=== PATIENT | female | born 1975 | race African-American/Black ===

== ENCOUNTER 2020-05-13 08:50 | Outpatient (CLI) | payer BC, SELFPAY ==
--- NOTE | ~2020-05-13 | CT_ITS ---
EXAMINATION: CT abdomen wo con DATE: 05/13/2020 09:16 INDICATION: Incisional hernia without obstruction or gangrene. TECHNIQUE: Computed tomography (CT) of the abdomen was performed without intravenous contrast. Automa juan daniel exposure control and iterative reconstruction technique were employed. The dose-length product wa s 400.52 mGy-cm. COMPARISON: None FINDINGS: Mild subpleural fibrosis or atelectasis at the periphery of the right lower lobe. Heart size is tuan l. No pericardial or pleural effusion. Liver, gallbladder, spleen, pancreas, bilateral adrenal glands and kidneys are normal. Postoperative change of prior umbilical hernia repair with no residual or re current hernia. Visualized portion of the bowels appear normal with no wall thickening or obstruction . No pathologically enlarged abdomen lymphadenopathy. Minimal degenerative changes in the visualized thoracolumbar spine. IMPRESSION: 1. Change of prior right umbilical hernia repair with no residual or recurrent hernia. Reviewed, dictated and finalized at location B. MANAGER
== END 2020-05-13 08:51 | disposition home or self-care (01) ==
LOC: ANHIMG 08:56
PROVIDERS: PCP Internal Medicine; Visit Provider Surgery
DX: K43.2 Incisional hernia without obstruction or gangrene (principal)
CPT/HCPCS: 74150

== ENCOUNTER → 2020-05-16 01:48 | Outpatient (CLI) | payer BC, SELFPAY ==
[2020-05-17 08:28] LABS: SARS-CoV-2 RNA PCR Negative
== END ==
PROVIDERS: PCP Internal Medicine; Visit Provider Surgery
DX: Z01.812 Encounter for preprocedural laboratory examination (principal); Z20.822 Contact with and (suspected) exposure to COVID-19
CPT/HCPCS: 36415; 85014; 85018; 93005; C9803; U0003; U0005

== ENCOUNTER 2020-05-16 08:52 | Outpatient (CLI) | payer BC, SELFPAY ==
[2020-05-16 09:25] LABS: Hematocrit 40.7 % (37.0-47.0); Hemoglobin 13.1 g/dL (12.0-15.0)
--- NOTE | 2020-05-16 11:30 | ECG_ITS ---
Measurements Intervals [place] Rate: 67 P: 51 PA: 175 QRS: 26 QRSD: 86 T: 16 QT: 376 QTc: 398 Interpretive Statements SINUS RHYTHM DELAYED PRECORDIAL R/S TRANSITION BORDERLINE ST-T WAVE ABNORMALITY- ANT/INF LEADS BASELINE ARTIFACT- I, III, AVL BORDERLINE ECG Electronically Signed On 05-16-2020 9:16:36 [employer]OR [employer]AC[employer] by Niels Arthur D.O.
== END 2020-05-16 08:53 | disposition home or self-care (01) ==
LOC: ANHSURGERY 08:54
PROVIDERS: Anesthesiology; PCP Internal Medicine; Visit Provider Surgery
DX: Z01.812 Encounter for preprocedural laboratory examination (principal); I10 Essential (primary) hypertension; D64.9 Anemia, unspecified; R94.31 Abnormal electrocardiogram [ECG] [EKG]
CPT/HCPCS: 36415; 85014; 85018; 93005

== ENCOUNTER 2020-05-20 12:31 | Observation (INO) | payer BC, SELFPAY ==
[2020-05-15 11:25] VITALS: BMI 31.1
[2020-05-19] VITALS (13 sets, daily range): BP systolic 102–128; BP diastolic 61–76; PULSE 71–103; RESP 14–26; TEMP 36–36.8; O2SAT 90–100
--- NOTE | 2020-05-19 08:27 | WPDANESEPPF ---
Anes - Initial Pre Proc Eval Procedure: Operation Date: 05/19/20 10:30 Proposed Procedures p Incisional Hernia Repair with Component Separation - Keke Vicente MD Date/Time: 05/19/20 08:27 Surgeon: Keke Vicente MD Pre Op Diagnosis: incisional hernia, without obstruction or gangrene Patient Data Age: 45 Gender: F Height: 1.57 m Weight: 77.15 kg Allergies Allergy/AdvReac Type Severity Reaction Status Date / Time No Known Allergies Allergy Verified 05/15/20 09:42 Home Medications Medication Instructions Recorded Confirmed Type amlodipine 10 mg tablet 10 mg PO DAILY 05/07/20 05/15/20 History atenolol 100 mg tablet 100 mg PO QAM 05/07/20 05/15/20 History cholecalciferol (vitamin D3) 25 25 mcg PO DAILY 05/07/20 05/15/20 History mcg (1,000 unit) capsule dicyclomine 10 mg capsule 10 mg PO TID 05/07/20 05/15/20 History ferrous sulfate 325 mg (65 mg 325 mg PO DAILY 05/07/20 05/15/20 History iron) tablet medroxyprogesterone 104 mg/0.65 mL 104 mg SUBCUT [id number] 05/07/20 05/15/20 History subcutaneous syringe potassium chloride 10 mEq 10 meq PO DAILY 05/07/20 05/15/20 History tablet,extended release tizanidine 4 mg capsule 4 mg PO TID PRN 05/07/20 05/15/20 History ondansetron HCl 4 mg tablet 4 mg PO Q8H #10 tablet 05/14/20 05/15/20 Rx Patient hx anesthesia problems: none Family hx anesthesia problems: none PMFSH Past Medical History Medical History (Updated 05/19/20 @ 08:28 by Joseph Stewart MD) Hypertension Obesity Surgical History Surgical History H/O umbilical hernia repair History of D&C [place] teeth extracted Social History Social History Smoking packs per day: 1 Smoking cigarettes per day: 20.0 Years smoked: 20 Smoking pack-years: 20.00 Smoking status: Former smoker Tobacco type: cigarettes Smoking end date: 03/14/15 Alcohol intake: never Living arrangements: alone 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 Questions were solicited and answers provided to the satisfaction of the patient/family/POA.
[2020-05-19] MEDS: ACETAMINOPHEN 500 MG TABLET 1000 MG PO (10:38)
[2020-05-19] MEDS: LACTATED RINGERS 1,000 ML 30 ML IV CONT ×2 (10:45→15:53)
[2020-05-19] MEDS: KETOROLAC 15 MG/ML VIAL (*BKC) IV PUSH (10:52)
--- NOTE | 2020-05-19 12:33 | WPDANESPNB ---
Anes - Peripheral Nerve Block Date/Time: 05/19/20 12:33 I have discussed with the patient/family/POA the placement of a peripheral nerve block for post-operative pain management, including associated risks, benefits, complications, and side effects. Alternative methods of post-operative analgesia were detailed. Questions were solicited and answers provided to the satisfaction of the patient/family/POA. Time-Out: A pre-procedural Time-Out was completed immediately before starting the procedure and confirmed: Patient Identification, Site, Procedure, Patient Position and the Availability of Requisite Equipment. Clinical Indications: Acute post-operative pain management requested by the operative surgeon. Nerve Block Insertion Note Anes-nerve block: other (b/l T7 mohinder block) Patient position: other (sitting) Skin prep: chlorhexidine Needle: 22 gauge, stimulating, insulated echogenic needle. Needle length: 80 mm Technique: ultrasound Technique comment: in plane Injectate: bupivacaine 0.25% with epi 5 mcg/ml (20cc/side) Observations: tolerated well Complications: none Procedure start time:: 1220 Procedure end time:: 1230
--- NOTE | 2020-05-19 12:34 | WPDHPUPDATE1 ---
History and Physical Update Update Date/Time: 05/19/20 12:34 History and Physical has been reviewed, including an updated exam of the patient. There are NO changes in the patient's condition. Risks, benefits, and alternatives have been discussed and questions answered. Patient agrees to proceed with procedure.
[2020-05-19] MEDS: ceFAZolin 2 GM/D5W 50 ML 2 GM/50 ML BAG IVPB (12:41)
--- NOTE | 2020-05-19 15:36 | PM.PROC ---
Procedure Note - Detailed Date of procedure: 05/19/20 Pre-op diagnosis: incisional hernia, without obstruction or gangrene incisional hernia, loss of abdominal domain with lateralization of the rectus approximately 8-1/2 cm Post-op diagnosis: same Procedure performed: incisional hernia repair with mesh, bilateral transversus abdominis myofascial flap advancement (4 cm on right, 5 cm on left), removal of mesh/foreign body Description of procedure: The patient was brought to the operating room and placed in the supine position. After adequate induction of general anesthesia, the patient was prepped and draped in the normal sterile fashion. A time-out was then done to verify the patient's identity as well as the procedure being performed. Of note, Dr. Corbin was present for the entirety of the case and assisted with the procedure. The defect was noted at the umbilicus and just above. I made an incision just below the umbilicus and extended superiorly to above the area of the defect. I then gained access into the peritoneal cavity. There were some adhesions to the anterior abdominal wall and these were taken down with the Bovie cautery. Once the adhesions were completely freed to the anterior abdominal wall, I was able to note the defect just superior to the umbilicus. There was a previously placed piece of mesh that had been well incorporated around the area of the umbilicus. There is also noted to be loss of domain superior as the rectus muscle had lateralized. This left a defect of approximately 8-1/2 cm. I then went ahead and excised the previously placed mesh at the umbilicus. Once done, we made small flap just anterior to the anterior fascia to get a better view of her hernia. It was noted that the patient had very thin fascia. We then began dissection on the patient's right side. A retro rectus plane was developed and extended the length of the wound. Once the plane was well-developed we carried it down to the area of the suprapubis. Superior we carried this plane to the area of the xiphoid. The same dissection was then undertaken on the left as we developed a retro rectus plane extending from the xiphoid down to the suprapubic area. We then attempted to close the fascia both posteriorly and anteriorly. It was noted at this point there would be too much tension to close either layer and the fascia would not come together at the midline. The decision was then made to do a transversus abdominis release on the patient's right side. I started at the right costal margin and divided the transversus abdominus muscle over a clamp using the Bovie cautery. This was continued from the costal margin inferiorly to the semi luminaris. The muscle was divided medial to the neurovascular bundles innervating the overlying rectus. The patient was noted to have very thin fascia and I did have to repair a few holes in the peritoneum with 3 0 Vicryl suture. Once the dissection was completed, it was noted to be hemostatic and there was an extensive plane noted for mesh placement. We then again attempted to close the fascia. Again there was noted to be too much tension for closure. We did have approximately 4 cm release after separation. The decision was made to do a release on the left side. Again I started at the left costal margin and divided the transversus abdominus muscle over a clamp using the Bovie cautery. This dissection was carried down to the semi luminaris. Again the muscle was divided medial to the neurovascular bundles innervating the rectus. Once dissection was completed, hemostasis was noted and a good plane was noted for mesh placement. We are now able to easily close the posterior fascia at the midline. The noted release was approximately 5 cm on the left side. I then closed the posterior fascia using a 0 PDS suture. I then placed an extra large piece soft polypropylene mesh into the retro rectus space. This was placed in a rectangular fashion, cent
[2020-05-19] MEDS: fentaNYL CITRATE INJ (*CRX) 100 MCG/2 ML VIAL 25 MCG IV PUSH ×6 (16:17→17:08)
--- NOTE | 2020-05-19 16:23 | SUR.PHASEI ---
1610 portable chest xray ordered per dr carmichael
--- NOTE | 2020-05-19 16:46 | SUR.PHASEI ---
2535 bipap off pt placed on 3L nc
--- NOTE | 2020-05-19 17:45 | ADMGEN ---
This patient, Shyla Sanchez, was admitted to Medical Room 249-01. Patient/family oriented to hospital policies and general routines including ID bracelet, bed and alarms, visiting hours, pain management, procedures, bathroom and other care routines, personal items, smoking policy, room service/diet, and visiting hours. Information on how to activate the Rapid Response Team has been discussed. Patient/Family are encouraged to report perceived risks to care and to ask questions if they do not understand what they are told or what they should do.
[2020-05-19] MEDS: LACTATED RINGERS 1,000 ML 100 ML IV CONT (18:12)
[2020-05-19] MEDS: HYDROcodone/acetaminophen (*CRX) 5-325 MG TABLET 1 TAB PO (18:13)
[2020-05-19] MEDS: MORPHINE SULFATE (*CRX) 2 MG/ML INJ IV PUSH (19:05)
[2020-05-19] MEDS: ONDANSETRON INJ 4 MG/2 ML VIAL IV PUSH (19:46)
[2020-05-19] MEDS: MORPHINE SULFATE (*CRX) 4 MG/ML INJ IV PUSH (21:26)
[2020-05-19] MEDS: HYDROcodone/acetaminophen (*CRX) 5-325 MG TABLET 2 TAB PO (22:26)
[2020-05-20] VITALS (8 sets, daily range): BP systolic 102–118; BP diastolic 54–71; PULSE 93–111; RESP 18–21; TEMP 35.7–37.1; O2SAT 93–100
--- NOTE | ~2020-05-20 | XR_ITS ---
XR chest 1V portable 05/19/2020 16:16 Indication: Hypoxia. Procedure: AP portable chest Comparison: No prior studies for comparison. Findings: Heart size normal for technique. No focal air space disease, pulmonary edema, pleural effus ion or suspected pneumothorax. There is mild deviation of the trachea to the right, possibly position al. Consider lymphadenopathy. Impression: 1: No acute cardiopulmonary disease. 2: Mild deviation of the trachea to the right. Consider lymphadenopathy. Vascular etiologies less fa vored. If there is concern for vascular abnormality, correlation with CTA chest recommended. Reviewed, dictated and finalized at location A. OLL SECRETARY Impression: 1: No acute cardiopulmonary disease. 2: Mild deviation of the trachea to the right. Consider lymphadenopathy. Vascu lar etiologies less favored. If there is concern for vascular abnormality, crystal elation with CTA chest recommended.
[2020-05-20] MEDS: MORPHINE SULFATE (*CRX) 4 MG/ML INJ IV PUSH (01:43)
[2020-05-20] MEDS: LACTATED RINGERS 1,000 ML 100 ML IV CONT (04:23)
[2020-05-20] MEDS: HYDROcodone/acetaminophen (*CRX) 5-325 MG TABLET 2 TAB PO ×3 (04:28→19:56)
[2020-05-20 05:24] LABS: Basophils Percent Auto 0.1 % (0.2-1.2); Hemoglobin 11.3 g/dL (12.0-15.0); Immature Granulocyte Absolute 0.09 K/mm3 (0.00-0.031); Immature Granulocyte Percent A 0.5 % (0-0.5); Lymphocytes Percent Auto 7.5 % (18.3-44.2); Mean Corpuscular HGB Conc 32.3 g/dl (32-36); Mean Corpuscular Hemoglobin 26.1 pg (26-34); Mean Corpuscular Volume 80.8 fl (80-100); Mean Platelet Volume 9.8 fl (7.4-10.4); Monocytes Absolute Auto 1.3 K/mm3 (0.1-0.6); Neutrophils Absolute Auto 15.9 K/mm3 (1.3-6.7); Neutrophils Percent Auto 84.9 % (45.5-73.1); Platelet Count Result 373 k/mm3 (150-375); Red Blood Count 4.33 M/mm3 (4.2-5.4); Red Cell Distribution Width 13.9 % (11.5-14.5); White Blood Count 18.8 K/mm3 (4.5-10.0)
[2020-05-20 05:40] LABS: Anion Gap 8 mmol/L (8-16); Blood Urea Nitrogen 7 mg/dL (7-17); Calcium 9.3 mg/dL (8.4-10.2); Carbon Dioxide 25 mmol/L (22-30); Chloride 106 mmol/L (98-107); Estimated CRCL calculation 85 ml/min; Estimated Glomerular Filt Rate > 60; Glucose 148 mg/dL (65-105); Potassium 3.4 mmol/L (3.4-5.0); Sodium 139 mmol/L (137-145)
[2020-05-20] MEDS: ENOXAPARIN 40 MG/0.4 ML SYRINGE SUB-Q (09:18)
[2020-05-20] MEDS: PANTOPRAZOLE 40 MG TABLET PO (09:19)
--- NOTE | 2020-05-20 10:36 | PM.PNGS ---
Progress Note: A&P Assessment and Plan (1) Incisional hernia: Code(s): K43.2 - Incisional hernia without obstruction or gangrene Status: Acute Assessment and Plan: POD#1 and doing fair. Will adjust analgesics to improve pain control. Advance diet as tolerated. Stop IVF. Encouraged increasing activity as tolerated and sitting in the chair with meals, ambulate in halls. Encouraged IS use. (2) Hypertension: Qualifiers: Hypertension type: essential hypertension Qualified Code(s): I10 - Essential (primary) hypertension Code(s): I10 - Essential (primary) hypertension Status: Acute Assessment and Plan: BP this morning 102/54 and 105/60. Will hold both amlodipine and atenolol this morning. HR 96 this morning. Could consider first restarting the atenolol if BP improves or if she becomes more tachycardic. Will continue to monitor closely. (3) Obesity: Code(s): E66.9 - Obesity, unspecified Status: Acute Additional Plan Discussed plan of care with Dr. Vicente at 10:42am today. Subjective Subjective Date/Time Seen: 05/20/20 09:36 Post Op day: 1 (incisional hernia repair with mesh, bilateral transversus abdominis myofascial flap advancement, removal of mesh) Patient reports: tolerating liquids well, voiding w/o difficulty, no flatus, no bowel movement and afebrile Interval history: Patient seen this morning. Abdominal pain is not being controlled well with current pain medications. Nausea last night after surgery, but no more nausea through the night or this morning. No vomiting. Tolerating liquids well and requesting regular food. Review of Systems Review of Systems: All systems reviewed & are unremarkable except as noted in HPI and below Cardiovascular: Cardiovascular: Reports no additional cardiovascular complaints, Denies chest pain, Denies pedal edema and Denies leg edema Respiratory: Respiratory: Reports no additional respiratory complaints, Denies cough, Denies dyspnea and Denies dyspnea on exertion Gastrointestinal: Gastrointestinal: Reports as per HPI and Reports no additional gastrointestinal complaints Genitourinary: Genitourinary: Reports no additional female genitourinary complaints and Reports as per HPI Exam Const: General: comfortable, no acute distress, alert and awake Orientation/consciousness: patient oriented x3 Resp: Effort & Inspection: normal respiratory effort Auscultation: clear to auscultation bilaterally Cardio: Rate: regular rate Rhythm: regular rhythm GI: Inspection: incision (Abdominal dressing clean and dry.) and other (slightly distended) GI Palp: Yes Soft to palpation and Yes Tenderness to palpation present (GI) (incisional) Auscultation: normal bowel sounds Rectal Exam: deferred Other: LLQ ERMA drain with minimal sanguineous drainage. Skin: General skin exam: normal color Rashes: no rashes Neuro: General: moves all extremities and no focal motor deficits Cranial nerves: Yes CN's II-XII intact bilaterally Speech: normal speech Extrem: General: normal to inspection, no clubbing, cyanosis or edema and no calf tenderness Psych: Mental Status: mental status grossly normal Attitude: cooperative Thought process: Normal thought process present Thought content: Yes Normal thought content present Insight: Good insight present (Psych) Judgement: Good judgement present (Psych) Objective Data Vital Signs Vital Signs: Vital Signs - 24 hr 05/19/20 15:45 05/19/20 16:10 05/19/20 16:25 Temperature 96.8 F L Pulse Rate 88 71 83 Respiratory Rate 26 H 23 H 20 Blood Pressure 111/72 107/65 Pulse Oximetry 90 99 100 05/19/20 16:40 05/19/20 16:55 05/19/20 17:10 Temperature Pulse Rate 75 91 97 Respiratory Rate 14 16 14 Blood Pressure 109/75 108/76 112/69 Pulse Oximetry 100 96 94 05/19/20 17:25 05/19/20 17:45 05/19/20 18:00 Temperature 97.2 F L 97.4 F L Pulse Rate 96 98 101 H Respiratory Rate 18 16 16 Blood Pressure 107
[2020-05-20] MEDS: HYDROmorphone HCL INJ (*CRX) 1 MG/ML SYR 0.5 MG IV PUSH ×4 (10:42→21:45)
[2020-05-20] MEDS: DICYCLOMINE HCL 10 MG CAPSULE PO ×2 (12:29→16:45)
[2020-05-20] MEDS: ONDANSETRON INJ 4 MG/2 ML VIAL IV PUSH ×2 (12:32→16:45)
--- NOTE | 2020-05-20 13:50 | WPDANESPN ---
Anes - Prog Note Post-Op Date/Time: 05/20/20 13:50 Cardiovascular status: normal Respiratory status: normal Airway patency: baseline Mental status: baseline Post-Op hydration status: normal Vital Signs: Last Vital Signs Temp 36.4 C 05/20/20 08:00 Pulse 96 05/20/20 08:00 Resp 18 05/20/20 08:00 BP 105/60 05/20/20 08:00 Pulse Ox 93 05/20/20 10:52 Pain Score (VAS): 03/23 I/O: Intake & Output 05/19/20 05/20/20 05/20/20 23:59 07:59 15:59 Intake Total 780 1950 720 Output Total 30 1800 410 Balance 750 150 310 Laboratory Tests 05/20/20 05:00 05/20/20 05:00 05/20/20 05/20/20 05:00 05:00 WBC 18.8 H RBC 4.33 Hgb 11.3 L Hct 35.0 L MCV 80.8 MCH 26.1 MCHC 32.3 RDW 13.9 Plt Count 373 MPV 9.8 Immature Gran % (Auto) 0.5 Neut % (Auto) 84.9 H Lymph % (Auto) 7.5 L [place] % (Auto) 7.0 Eos % (Auto) 0.0 Baso % (Auto) 0.1 L Lymph # (Auto) 1.40 [place] # (Auto) 1.3 H Eos # (Auto) 0.0 Baso # (Auto) 0.0 Abs Immat Gran (auto) 0.09 H Absolute Neuts (auto) 15.9 H Absolute Nucleated RBC 0.0 Nucleated RBC % 0.0 Sodium 139 Potassium 3.4 Chloride 106 Carbon Dioxide 25 Anion Gap 8 BUN 7 Creatinine 0.70 Estim Creat Clear Calc 85 Estimated GFR > 60 Glucose 148 H Calcium 9.3 Post-procedural complaints: none Patient Feedback: Patient satisfied with anesthetic care.
[2020-05-20] MEDS: HYDROcodone/acetaminophen (*CRX) 7.5-325 MG TABLET 1 TAB PO (13:56)
[2020-05-20] MEDS: BISACODYL 5 MG TABLET EC 10 MG PO (19:52)
[2020-05-21] VITALS (9 sets, daily range): BP systolic 101–133; BP diastolic 60–80; PULSE 85–107; RESP 16–20; TEMP 36.1–36.8; O2SAT 95–97
[2020-05-21] MEDS: HYDROcodone/acetaminophen (*CRX) 5-325 MG TABLET 2 TAB PO ×2 (04:33→09:29)
[2020-05-21] MEDS: HYDROmorphone HCL INJ (*CRX) 1 MG/ML SYR 0.5 MG IV PUSH (06:01)
[2020-05-21] MEDS: ENOXAPARIN 40 MG/0.4 ML SYRINGE SUB-Q (09:20)
[2020-05-21] MEDS: PANTOPRAZOLE 40 MG TABLET PO (09:20)
[2020-05-21] MEDS: BISACODYL 10 MG SUPPOSITORY RECTAL (09:20)
[2020-05-21] MEDS: DICYCLOMINE HCL 10 MG CAPSULE PO ×3 (09:21→17:38)
--- NOTE | 2020-05-21 12:52 | PM.PNGS ---
Progress Note: A&P Assessment and Plan (1) Incisional hernia: Code(s): K43.2 - Incisional hernia without obstruction or gangrene Status: Acute Assessment and Plan: POD#2 and continuing to improve. Incision looks good today. Will again adjust analgesics to improve pain control - add Ibuprofen to alternate with oral narcotics, encouraged patient and nurse to avoid Dilaudid and stick to oral pain medication. Continue to monitor ERMA drain Will order PT/OT, encourage increased activity and ambulating in the halls. Encouraged IS use. Add simethicone. Continue colace and dulcolax. Use abdominal binder. (2) Hypertension: Qualifiers: Hypertension type: essential hypertension Qualified Code(s): I10 - Essential (primary) hypertension Code(s): I10 - Essential (primary) hypertension Status: Acute Assessment and Plan: Most recent BP 133/80 and HR 107. Will restart atenolol today (give half dose today and restart regular dose tomorrow morning). Continue to hold amlodipine today. Additional Plan Discussed plan of care with Dr. Vicente today. Subjective Subjective Date/Time Seen: 05/21/20 12:52 Post Op day: 2 Patient reports: still having pain, tolerating a regular diet, voiding w/o difficulty, no flatus, no bowel movement and afebrile Interval history: Patient still having abdominal pain, primarily with movement. She has only walked to the bathroom but not up in the halls. Voiding well. Tolerating a diet without nausea or vomiting. Reports Dilaudid is helping her incisional pain but the [place] is not helping with her pain at all. No other complaints today. Review of Systems Review of Systems: All systems reviewed & are unremarkable except as noted in HPI and below Cardiovascular: Cardiovascular: Reports no additional cardiovascular complaints, Denies chest pain and Denies pedal edema Respiratory: Respiratory: Reports no additional respiratory complaints, Denies cough, Denies dyspnea and Denies dyspnea on exertion Gastrointestinal: Gastrointestinal: Reports as per HPI and Reports no additional gastrointestinal complaints Exam Const: General: no acute distress, alert and awake Orientation/consciousness: patient oriented x3 Cardio: Rate: regular rate Rhythm: regular rhythm GI: Inspection: incision (midline incision clean and dry, chris intact) and other (slightly distended) GI Palp: Yes Soft to palpation, Yes Tenderness to palpation present (GI) (diffusely tender, worse near incision) and No Hernia present Auscultation: normal bowel sounds Other: LLQ ERMA drain with minimal serosanguineous drainage. Skin: General skin exam: normal color Neuro: General: moves all extremities and no focal motor deficits Speech: normal speech Extrem: General: no clubbing, cyanosis or edema and no calf tenderness Psych: Mental Status: mental status grossly normal Attitude: cooperative Insight: Good insight present (Psych) Judgement: Good judgement present (Psych) Objective Data Vital Signs Vital Signs: Vital Signs - 24 hr 05/20/20 13:52 05/20/20 14:00 05/20/20 22:00 Temperature 96.3 F L 98.8 F 97.3 F L Pulse Rate 111 H 104 H 93 Respiratory Rate 20 18 20 Blood Pressure 113/60 118/68 107/71 Pulse Oximetry 96 97 98 05/21/20 02:00 05/21/20 06:00 05/21/20 09:36 Temperature 98.3 F 98.0 F Pulse Rate 88 104 H Respiratory Rate 18 20 20 Blood Pressure 101/62 106/60 Pulse Oximetry 96 97 96 05/21/20 09:38 05/21/20 10:00 Temperature 97.8 F Pulse Rate 107 H Respiratory Rate 18 Blood Pressure 133/80 Pulse Oximetry 97 95 Intake/Output Intake/Output: Intake & Output 05/18/20 05/19/20 05/20/20 05/21/20 23:59 23:59 23:59 23:59 Intake Total 830 3950 590 Output Total 30 4560 1130 Balance 532 -833 -518 Meds/Results Medications: Active Medications Generic Name Dose Route Start Last Admin Trade Name Robertq PRN Reason Stop Dose Admin Acetaminophen 500 mg 05/19/20 1
[2020-05-21] MEDS: IBUPROFEN 600 MG TABLET PO (13:04)
[2020-05-21] MEDS: SIMETHICONE 80 MG TAB.CHEW PO ×3 (13:06→20:15)
[2020-05-21] MEDS: oxyCODONE/ACETAMINOPHEN (*CRX) 5-325 MG TABLET 1 TABLET PO ×3 (14:15→22:24)
[2020-05-21] MEDS: atenoloL 50 MG TABLET PO (14:24)
[2020-05-21] MEDS: BISACODYL 5 MG TABLET EC 10 MG PO (17:43)
[2020-05-22] VITALS (8 sets, daily range): BP systolic 101–121; BP diastolic 65–87; PULSE 74–101; RESP 16–20; TEMP 35.9–36.7; O2SAT 95–100
[2020-05-22] MEDS: oxyCODONE/ACETAMINOPHEN (*CRX) 5-325 MG TABLET 1 TABLET PO ×4 (04:50→18:06)
[2020-05-22] MEDS: SIMETHICONE 80 MG TAB.CHEW PO ×4 (08:41→20:27)
[2020-05-22] MEDS: ENOXAPARIN 40 MG/0.4 ML SYRINGE SUB-Q (08:42)
[2020-05-22] MEDS: PANTOPRAZOLE 40 MG TABLET PO (08:42)
[2020-05-22] MEDS: DICYCLOMINE HCL 10 MG CAPSULE PO ×3 (08:42→18:05)
[2020-05-22] MEDS: atenoloL 50 MG TABLET 100 MG PO (08:42)
--- NOTE | 2020-05-22 10:15 | PM.PNGS ---
Progress Note: A&P Assessment and Plan (1) Incisional hernia: Code(s): K43.2 - Incisional hernia without obstruction or gangrene Status: Acute Assessment and Plan: better, encourage OOB/IS, control pain as much as possible c po analgesia, anticipate home soon (2) Hypertension: Qualifiers: Hypertension type: essential hypertension Qualified Code(s): I10 - Essential (primary) hypertension Code(s): I10 - Essential (primary) hypertension Status: Acute Assessment and Plan: stable, cont home meds Subjective Subjective Date/Time Seen: 05/22/20 feels better today, sitting up in chair this am, pain better controlled Review of Systems Review of Systems: All systems reviewed & are unremarkable except as noted in HPI and below Exam Const: General: cooperative, comfortable and no acute distress Orientation/consciousness: patient oriented x3 Resp: Auscultation: clear to auscultation bilaterally Cardio: Rate: tachycardic Rhythm: regular rhythm GI: Inspection: normal to inspection, distended and incision GI Palp: Yes Soft to palpation and Yes Tenderness to palpation present (GI) Other: soft, sl dist, katharina TTP, incision C/D/I, ERMA c s/s output Objective Data Vital Signs Vital Signs: Vital Signs - 24 hr 05/21/20 14:00 05/21/20 14:24 05/21/20 18:00 Temperature 36.3 C L 36.2 C L Pulse Rate 100 102 H 85 Respiratory Rate 16 16 Blood Pressure 129/75 106/68 Pulse Oximetry 96 97 05/21/20 21:43 05/22/20 02:00 05/22/20 05:31 Temperature 36.1 C L 36.1 C L 36.2 C L Pulse Rate 92 93 94 Respiratory Rate 18 18 18 Blood Pressure 113/72 121/83 111/87 Pulse Oximetry 95 95 99 05/22/20 08:42 05/22/20 10:00 Temperature 36.6 C Pulse Rate 86 101 H Respiratory Rate 16 Blood Pressure 102/68 Pulse Oximetry 97 Intake/Output Intake/Output: Intake & Output 05/19/20 05/20/20 05/21/20 05/22/20 23:59 23:59 23:59 23:59 Intake Total 830 3950 2020 480 Output Total 30 1540 3015 440 Balance 703 -986 -133 40 Meds/Results Medications: Active Medications Generic Name Dose Route Start Last Admin Trade Name Freq PRN Reason Stop Dose Admin Acetaminophen 500 mg 05/19/20 15:30 Acetaminophen 500 Mg Tablet PO Q6H PRN Mild Pain (1-3) or Fever Atenolol 100 mg 05/22/20 09:00 05/22/20 08:42 Atenolol 50 Mg Tablet PO 100 mg QAM AURE Administration Bisacodyl 10 mg 05/20/20 18:00 05/21/20 17:43 Bisacodyl 5 Mg Tablet Ec PO 10 mg QPM AURE Administration Dicyclomine HCl 10 mg 05/20/20 13:00 05/22/20 08:42 Dicyclomine Hcl 10 Mg Capsule PO 10 mg TID [facility] Administration Enoxaparin Sodium 40 mg 05/20/20 09:00 05/22/20 08:42 Enoxaparin 40 Mg/0.4 Ml Syringe SUB-Q 40 mg DAILY AURE Administration Hydromorphone HCl 0.5 mg 05/20/20 11:11 05/21/20 06:01 Hydromorphone Hcl Inj (*Crx) 1 Mg/Ml Syr IV PUSH 0.5 mg Q2H PRN Administration Pain Rated 7-10 Ibuprofen 600 mg 05/21/20 12:42 05/21/20 13:04 Ibuprofen 600 Mg Tablet PO 600 mg Q6H PRN Administration Cramping Ondansetron HCl 4 mg 05/19/20 15:30 05/20/20 16:45 Ondansetron Inj 4 Mg/2 Ml Vial IV PUSH 4 mg Q4H PRN Administration Nausea And Vomiting Oxycodone/Acetaminophen 1 tablet 05/21/20 13:04 05/22/20 08:41 Oxycodone/Acetaminophen (*Crx) 5-325 Mg Tablet PO 1 tablet Q4H PRN Administration Pain Rated 7-10 Pantoprazole Sodium 40 mg 05/20/20 09:00 05/22/20 08:42 Pantoprazole 40 Mg Tablet PO 40 mg QAM AURE Administration Simethicone 80 mg 05/21/20 13:00 05/22/20 08:41 Simethicone 80 Mg Tab.Chew PO 80 mg QID AURE Administration Radiology Results: ITS Impressions Chest X-Ray 05/19/20 16:26 Impression: 1: No acute cardiopulmonary disease. 2: Mild deviation of the trachea to the right. Consider lymphadenopathy. Vascular etiologies less favored. If there is concern for vascular abnormality, correlation
[2020-05-22 10:21] LABS: Hematocrit 36.1 % (37.0-47.0); Hemoglobin 11.6 g/dL (12.0-15.0); Mean Corpuscular HGB Conc 32.1 g/dl (32-36); Mean Corpuscular Hemoglobin 26.7 pg (26-34); Mean Platelet Volume 9.6 fl (7.4-10.4); Platelet Count Result 367 k/mm3 (150-375); Red Blood Count 4.35 M/mm3 (4.2-5.4); Red Cell Distribution Width 14.4 % (11.5-14.5); White Blood Count 9.5 K/mm3 (4.5-10.0)
[2020-05-22 10:35] LABS: Anion Gap 8 mmol/L (8-16); Blood Urea Nitrogen 7 mg/dL (7-17); Calcium 8.7 mg/dL (8.4-10.2); Carbon Dioxide 27 mmol/L (22-30); Chloride 104 mmol/L (98-107); Estimated CRCL calculation 84 ml/min; Estimated Glomerular Filt Rate > 60; Glucose 156 mg/dL (65-105); Potassium 3.2 mmol/L (3.4-5.0); Sodium 139 mmol/L (137-145)
[2020-05-22] MEDS: IBUPROFEN 600 MG TABLET PO ×2 (10:46→20:27)
[2020-05-22] MEDS: BISACODYL 5 MG TABLET EC 10 MG PO (18:06)
[2020-05-23] MEDS: oxyCODONE/ACETAMINOPHEN (*CRX) 5-325 MG TABLET 1 TABLET PO ×2 (00:54→08:02)
[2020-05-23 01:04] VITALS: BP 102/65; PULSE 84; RESP 20; TEMP 36.2; O2SAT 96
[2020-05-23 04:49] VITALS: BP 128/70; PULSE 83; RESP 20; TEMP 36.1; O2SAT 97
[2020-05-23 08:00] VITALS: PULSE 88; RESP 20; O2SAT 98
[2020-05-23 08:03] VITALS: PULSE 88
[2020-05-23] MEDS: PANTOPRAZOLE 40 MG TABLET PO (08:03)
[2020-05-23] MEDS: DICYCLOMINE HCL 10 MG CAPSULE PO (08:03)
[2020-05-23] MEDS: atenoloL 50 MG TABLET 100 MG PO (08:03)
[2020-05-23] MEDS: SIMETHICONE 80 MG TAB.CHEW PO (08:08)
--- NOTE | 2020-05-23 09:47 | PM.DS ---
DS: Admitting Diagnosis Admitting Diagnosis Admitting Diagnosis: incisional hernia, loss of abdominal domain DS: Discharge Diagnosis Discharge Diagnosis (1) Incisional hernia: Code(s): K43.2 - Incisional hernia without obstruction or gangrene Status: Acute Assessment and Plan: s/p repair c mesh, please see full operative report for details, routine postop care instructions given, cont light activity restriction, f/u 2 wks (2) Hypertension: Qualifiers: Hypertension type: essential hypertension Qualified Code(s): I10 - Essential (primary) hypertension Code(s): I10 - Essential (primary) hypertension Status: Acute Assessment and Plan: stable, resume home meds (3) Obesity: Code(s): E66.9 - Obesity, unspecified Status: Acute Assessment and Plan: dietary and lifestyle modifications DS: Summary Hospital Course Reason for hospitalization: incisional hernia Hospital Course: Pt is a 45 y/o F presenting to hospital c supraumbilical incisional hernia. Pt very symptomatic c/o severe pain and occasional sx of obstruction. Pt taken to OR and repair done on 05/19, please see full op report for details. Pt initially c/o significant soreness, pain postop and pain meds adjusted accordingly. Over next few days, pt pain became much improved. Pt able to ambulate s issue by time of dc. Pt osmar diet and having normal bowel fxn. Pt given instructions for routine postop care, including light activity restriction. ERMA out today before dc. Pt to f/u in 1 wk for staple removal. Status at Discharge Functional status at discharge: independent ambulation Overall status at discharge: patient is progressing back to baseline Time Spent with Patient Time attestation: Total time spent providing and/or coordinating discharge services: Time spent: Less than 30 minutes Exam Const: General: cooperative, comfortable and no acute distress Nutritional Appearance: obese Orientation/consciousness: patient oriented x3 Resp: Auscultation: clear to auscultation bilaterally Cardio: Rate: regular rate Rhythm: regular rhythm GI: Inspection: normal to inspection, Abdominal wall edema, distended and incision GI Palp: Yes Soft to palpation, Yes Tenderness to palpation present (GI) and No Guarding due to palpation present (GI) Other: soft, sl dist, katharina TTP, incision C/D/I, ERMA removed DS: Data Data Completed and Pending Labs on day of discharge: Labs from last 24 hours 03/11/21 03/11/21 10:07 10:07 WBC 9.5 RBC 4.35 Hgb 11.6 L Hct 36.1 L MCV 83.0 MCH 26.7 MCHC 32.1 RDW 14.4 Plt Count 367 MPV 9.6 Sodium 139 Potassium 3.2 L Chloride 104 Carbon Dioxide 27 Anion Gap 8 BUN 7 Creatinine 0.70 Estim Creat Clear Calc 84 Estimated GFR > 60 Glucose 156 H Calcium 8.7 Discharge Plan Discharge Attending physician on discharge: Keke Vicente Discharging Clinician: Keke Vicente Anticipated Discharge Date/Time: 05/23/20 09:41 Patient Disposition: Home, Self-Care Activity: may shower, no straining and other - see discharge instructions Diet: as tolerated and heart healthy Wound Care Instructions: incision open to air Discharge Instructions: DISCHARGE INSTRUCTION SHEET FOR HERNIA, GALLBLADDER AND APPENDIX SURGERIES DR. VICENTE PATIENT TO TAKE HOME 1. May shower in 24 hours, no soaking in bath x 2weeks. 2. Call office for: Wound increasingly painful or bleeding Vomiting Fever of greater than 101 degrees 3. If no bowel movement for three days, take 1 oz. (30 ml) Milk of Magnesia or MiraLax 17g 1 to 2 times daily. 4. No heavy lifting > 10-15 pounds x 6 weeks for hernia repairs and 2 weeks for laparoscopic cholecystectomy or appendectomy. 5. No driving for 3 days or while taking narcotic pain medications. 6. Ice to surgical site for 48 hours (30 min on, then 30 min off).
[2020-05-23 10:00] VITALS: BP 133/82; PULSE 93; RESP 14; TEMP 36.5; O2SAT 98
== END 2020-05-23 11:30 | disposition home or self-care (01) ==
LOC: ANHSURGERY 12:48 → ANH2MED 12:48
PROVIDERS: Nurse Practitioner Family; Admitting Provider Surgery; PCP Internal Medicine; Visit Provider Surgery
PROC: 0WQF0ZZ Repair Abdominal Wall, Open Approach (ICD-10-PCS; CPT 49560; principal; 2020-05-19 10:30)
DX: K43.2 Incisional hernia without obstruction or gangrene (principal); I10 Essential (primary) hypertension; G89.18 Other acute postprocedural pain
CPT/HCPCS: 64461; 49560; 49568; 15734; 36415; 71045; 80048; 85025; 85027; 94002; 97161; 97165; A9270; C1781; G0378; G0379; J0690; J1100; J1170; J1650; J1885; J2250; J2270; J2370; J2405; J2704; J3010; J7120

== ENCOUNTER 2020-05-25 12:54 | Emergency (ER) | payer BC, SELFPAY ==
--- NOTE | ~2020-05-25 | XR_ITS ---
EXAMINATION: XR abdomen obstructive series DATE: 05/25/2020 13:56 INDICATION: Abdominal pain. TECHNIQUE: Upright and supine views of the abdomen were obtained. COMPARISON: CT abdomen 05/13/2020 FINDINGS: There are no dilated loops of bowel. There is no free intraperitoneal gas. Skin chris ove rlie the abdomen. IMPRESSION: 1. Normal bowel gas pattern. Reviewed, dictated and finalized at location A.
[2020-05-25 13:03] VITALS: BP 147/93; PULSE 123; RESP 20; TEMP 36.8; O2SAT 100
--- NOTE | 2020-05-25 13:38 | ED.ABDPAIN ---
HPI - Abdominal Pain General Chief Complaint: Abdominal Pain Stated Complaint: s/p hernia surgery unable to urinate Time Seen by Provider: 05/25/20 12:58 Source: patient Mode of arrival: ambulatory Limitations: no limitations History of Present Illness HPI narrative: This is a 45 year old female that presents to the ER for difficulty urinating. Reports she had a hernia repair 6 days ago. Reports she has not had a BM since. Reports this morning she did urinate normally, but since has not been able to. Reports she feels the urge, but cannot. Also reports she feels like she needs to have a bowel movement. Denies fever, or vomiting. Related Data Home Medications Medication Instructions Recorded Confirmed amlodipine 10 mg tablet 10 mg PO DAILY 05/07/20 05/19/20 atenolol 100 mg tablet 100 mg PO QAM 05/07/20 05/19/20 cholecalciferol (vitamin D3) 25 25 mcg PO DAILY 05/07/20 05/19/20 mcg (1,000 unit) capsule dicyclomine 10 mg capsule 10 mg PO TID 05/07/20 05/19/20 ferrous sulfate 325 mg (65 mg 325 mg PO DAILY 05/07/20 05/19/20 iron) tablet medroxyprogesterone 104 mg/0.65 mL 104 mg SUBCUT [id number] 05/07/20 05/19/20 subcutaneous syringe tizanidine 4 mg capsule 4 mg PO TID PRN 05/07/20 05/19/20 Allergies Allergy/AdvReac Type Severity Reaction Status Date / Time No Known Allergies Allergy Verified 05/25/20 13:08 Review of Systems Review of Systems: Narrative: CONSTITUTIONAL: Denies fever GASTROINTESTINAL: Reports abdominal pain. Denies nausea or vomiting. GENITOURINARY: Denies dysuria All systems reviewed & are unremarkable except as noted in HPI and below PMFSH Past Medical History Medical History (Updated 05/25/20 @ 17:13 by Leslee Narvaez PA-C) Hypertension Obesity Surgical History Surgical History H/O umbilical hernia repair History of D&C Rotan teeth extracted Social History Social History Smoking packs per day: 1 Smoking cigarettes per day: 20.0 Years smoked: 20 Smoking pack-years: 20.00 Smoking status: Former smoker Tobacco type: cigarettes Smoking end date: 03/14/15 Alcohol intake: never Substance use: never Additional occupation/education comments: [employer] Gender identity (if verbalized by the patient): Female Spiritual care concerns: No Exam Narrative: Exam Narrative: GENERAL: Well-appearing, well-nourished, and in no acute distress. HEAD: Normocephalic, atraumatic. EYES: EOMI. CHEST: Clear to auscultation. No respiratory distress. No wheezes rales or rhonchi HEART: Regular rate and rhythm. No murmur heard. Normal peripheral pulses. ABDOMEN: Soft, nontender, nondistended, normal active bowel sounds. Incision to the left mid abdomen with chris in place. No surrounding erythema, warmth or edema. No abnormal drainage EXTREMITIES: Normal range of motion. No edema. SKIN: Warm, dry, no rash. NEURO: No focal deficits. Alert and oriented x3. PSYCH: Normal mood and affect Course Consultations Consultation #1: Spoke with Dr. Rodriguez about patient and work-up. Patient instructed to continue MiraLAX at home and follow-up at her scheduled appointment. Date: 05/25/20 Time: 17:15 Vital Signs Vital signs: Vital Signs Temperature 98.3 F 05/25/20 13:03 Pulse Rate 123 H 05/25/20 13:03 Respiratory Rate 20 05/25/20 13:03 Blood Pressure 147/93 H 05/25/20 13:03 Pulse Oximetry 100 05/25/20 13:03 Temperature 98.3 F 05/25/20 13:03 Pulse Rate 118 H 05/25/20 15:53 Respiratory Rate 20 05/25/20 15:53 Blood Pressure 142/87 H 05/25/20 15:53 Pulse Oximetry 96 05/25/20 15:53 MDM - Abdominal Pain MDM Narrative Medical decision making narrative: Patient presents to the emergency department for difficulty urinating. Also had been having difficulty having a bowel movement since her recent incisional hernia repair. She is afebrile and no
[2020-05-25 13:57] LABS: Basophils Percent Auto 0.1 % (0.2-1.2); Eosinophils Absolute Auto 0.2 K/mm3 (0-0.3); Hemoglobin 12.2 g/dL (12.0-15.0); Immature Granulocyte Absolute 0.07 K/mm3 (0.00-0.031); Immature Granulocyte Percent A 0.7 % (0-0.5); Lymphocytes Absolute Auto 1.94 K/mm3 (0.9-3.2); Lymphocytes Percent Auto 19.5 % (18.3-44.2); Mean Corpuscular HGB Conc 32.1 g/dl (32-36); Mean Corpuscular Hemoglobin 26.6 pg (26-34); Mean Corpuscular Volume 82.8 fl (80-100); Mean Platelet Volume 9.1 fl (7.4-10.4); Monocytes Absolute Auto 0.6 K/mm3 (0.1-0.6); Monocytes Percent Auto 6.4 % (2.6-8.5); Neutrophils Absolute Auto 7.1 K/mm3 (1.3-6.7); Neutrophils Percent Auto 71.3 % (45.5-73.1); Platelet Count Result 435 k/mm3 (150-375); Red Blood Count 4.59 M/mm3 (4.2-5.4); Red Cell Distribution Width 14.2 % (11.5-14.5); White Blood Count 9.9 K/mm3 (4.5-10.0)
[2020-05-25 14:09] LABS: Anion Gap 7 mmol/L (8-16); Blood Urea Nitrogen 7 mg/dL (7-17); Calcium 9.5 mg/dL (8.4-10.2); Carbon Dioxide 29 mmol/L (22-30); Chloride 105 mmol/L (98-107); Estimated CRCL calculation 82 ml/min; Estimated Glomerular Filt Rate > 60; Glucose 107 mg/dL (65-105); Potassium 3.6 mmol/L (3.4-5.0); Sodium 141 mmol/L (137-145)
[2020-05-25 14:41] LABS: Add Urine Microscopic? NO; Appearance Urine Clear (Clear); Bilirubin Urine Negative (Negative); Blood Urine Negative (Negative); Color Urine Yellow (Yellow); Glucose Urine UA Negative (Negative); Ketones Urine Negative (Negative); Leukocyte Esterase Ur Negative LEU/UL (Negative); Nitrate Urine Negative (Negative); Protein Urine Negative (Negative); Specific Grav Ur 1.012 (1.001-1.035); Urobilinogen Urine Negative mg/dL (<2.0)
[2020-05-25] MEDS: polyethylene glycoL 3350 17 GM POWD.PACK PO (15:00)
[2020-05-25 15:53] VITALS: BP 142/87; PULSE 118; RESP 20; O2SAT 96
[2020-05-25 17:24] VITALS: BP 152/98; PULSE 99; RESP 17; O2SAT 97
== END 2020-05-25 17:25 | disposition home or self-care (01) ==
PROVIDERS: Physician Assistant; Emergency Provider Family Medicine; PCP Internal Medicine
DX: K59.00 Constipation, unspecified (principal); I10 Essential (primary) hypertension; E66.9 Obesity, unspecified; Z68.29 Body mass index [BMI] 29.0-29.9, adult; Z87.891 Personal history of nicotine dependence; Z98.890 Other specified postprocedural states
CPT/HCPCS: 36415; 51701; 74019; 80048; 81003; 81025; 85025; 99283

== ENCOUNTER 2020-07-15 07:20 | Outpatient (CLI) | payer BC, SELFPAY ==
--- NOTE | ~2020-07-15 | CT_ITS ---
EXAMINATION: CT abdomen w con INDICATION: Incisional hernia without obstruction or gangrene TECHNIQUE: Computed tomographic images of the abdomen were obtained after the administration of 100 c c of Omnipaque 350 intravenous contrast. The dose-length product (DLP) was 600.43 mGy-cm. Automated e xposure control and iterative reconstruction technique were employed. COMPARISON: 05/13/2020 FINDINGS: Minimal dependent atelectasis is present in the lung bases. The heart size is normal. The l iver, spleen, pancreas, gallbladder, and adrenal glands are normal. The kidneys are unremarkable. The re are no pathologically enlarged lymph nodes. Changes of interval umbilical hernia repair revision a re noted. There is inflammation of the anterior subcutaneous tissues in the midline abdomen without e vidence of abscess. There is no free intraperitoneal gas or evidence of bowel obstruction. IMPRESSION: 1. Changes of interval umbilical hernia repair revision with inflammation but no evidence of abscess. Reviewed, dictated and finalized at location A. IMPRESSION: 1. Changes of interval umbilical hernia repair revision with inflammation but n o evidence of abscess.
[2020-07-15 16:28] LABS: Estimated Glomerular Filt Rate > 60
== END 2020-07-15 07:21 | disposition home or self-care (01) ==
LOC: ANHIMG 07:21
PROVIDERS: PCP Internal Medicine; Visit Provider Surgery
DX: K43.2 Incisional hernia without obstruction or gangrene (principal)
CPT/HCPCS: 74160; Q9967

== ENCOUNTER 2022-05-04 10:43 | Outpatient (CLI) | payer OTHER, SELFPAY ==
--- NOTE | ~2022-05-04 | XR_ITS ---
Right Knee Technique: AP, lateral, and sunrise views were obtained. Clinical History: Abnormal immunological findings Findings: No fracture or dislocation is seen. Osseous alignment is anatomic. Joint spaces are preserv ed without degenerative or erosive change. Small metallic foreign bodies noted in the anterior subcut aneous soft tissues at the distal thigh. No joint effusion is seen. Impression: No osseous or articular abnormality. Small metallic foreign bodies in the anterior subcutaneous soft tissues at the distal right thigh. Reviewed, dictated and finalized at location . ANALYST Impression: No osseous or articular abnormality. Small metallic foreign bodies in the anterior subcutaneous soft tissues at the distal right thigh.
--- NOTE | ~2022-05-04 | XR_ITS ---
Left foot Technique: AP and lateral standing views were obtained. Clinical History: Abnormal immunological finding Findings: No acute fracture or dislocation is seen. Osseous alignment is anatomic. Joint spaces are p reserved without erosive or degenerative change. Soft tissues are unremarkable. Impression: Unremarkable left foot radiographs. Reviewed, dictated and finalized at location . RESOURCE MANAGER Impression: Unremarkable left foot radiographs.
--- NOTE | ~2022-05-04 | XR_ITS ---
Left Knee Technique: AP, lateral, and sunrise views were obtained. Clinical History: Abnormal immunological findings Findings: No fracture or dislocation is seen. Osseous alignment is anatomic. Joint spaces are preserv ed without degenerative or erosive change. Soft tissues are unremarkable. No joint effusion is seen. Impression: Unremarkable left knee radiographs. Reviewed, dictated and finalized at location . AND LINK SHOP SUPERVISOR Impression: Unremarkable left knee radiographs.
--- NOTE | ~2022-05-04 | XR_ITS ---
Right foot Technique: AP and lateral standing views were obtained. Clinical History: Abnormal immunological finding Findings: No acute fracture or dislocation is seen. Osseous alignment is anatomic. Joint spaces are p reserved without erosive or degenerative change. Soft tissues are unremarkable. Impression: Unremarkable right foot radiographs. Reviewed, dictated and finalized at location . LE MAKER Impression: Unremarkable right foot radiographs.
--- NOTE | ~2022-05-04 | XR_ITS ---
Bilateral Hands Technique: PA, oblique, and lateral views, and ball-catcher's view were obtained. Clinical History: Abnormal immunological findings Findings: No acute fracture or dislocation is seen. Osseous alignment is anatomic. Joint spaces are p reserved. Soft tissues are unremarkable. Impression: Unremarkable bilateral hand radiographs. Reviewed, dictated and finalized at [facility]. ET CLOSER Impression: Unremarkable bilateral hand radiographs.
--- NOTE | ~2022-05-04 | XR_ITS ---
Clinical Indication: Abnormal immunological findings PA and lateral views of the chest: Comparison: 05/19/2020 Findings: The lungs are clear, without evidence of focal consolidation or pleural effusion. Cardiome diastinal silhouette is within normal limits. Bones and soft tissues are unremarkable. Impression: Normal chest. Reviewed, dictated and finalized at [facility]. UMER LENDING MANAGER Impression: Normal chest.
--- NOTE | ~2022-05-04 | XR_ITS ---
Lumbosacral Spine: AP, oblique, and lateral views Clinical History: Abnormal immunological findings Findings: The normal lordotic curve is maintained. The vertebral bodies and posterior elements are i ntact. The intervertebral disc spaces are preserved. The sacroiliac joints are normally outlined. Impression: No significant abnormality. Reviewed, dictated and finalized at [facility]. OMS OFFICER Impression: No significant abnormality.
[2022-05-04 12:26] LABS: Hematocrit 41.8 % (37.0-47.0); Hemoglobin 13.6 g/dL (12.0-15.0); Mean Corpuscular HGB Conc 32.5 g/dl (32-36); Mean Corpuscular Hemoglobin 27.3 pg (26-34); Mean Corpuscular Volume 83.8 fl (80-100); Mean Platelet Volume 9.6 fl (7.4-10.4); Platelet Count Result 398 k/mm3 (150-375); Red Blood Count 4.99 M/mm3 (4.2-5.4); Red Cell Distribution Width 14.5 % (11.5-14.5); White Blood Count 7.6 K/mm3 (4.5-10.0)
[2022-05-04 12:55] LABS: Complement C3 144 mg/dL (88-165)
[2022-05-04 13:06] LABS: Alanine Aminotransferase 29 U/L (6-35); Albumin Level 4.7 g/dL (3.5-5.1); Alkaline Phosphatase 133 U/L (38-126); Anion Gap 9 mmol/L (8-16); Aspartate Amino Transferase 41 U/L (14-36); Bilirubin,Total 0.5 mg/dL (0.2-1.3); Blood Urea Nitrogen 11 mg/dL (7-17); CRP 0.6 mg/dL (<1.0); Calcium 9.4 mg/dL (8.4-10.2); Carbon Dioxide 30 mmol/L (22-30); Chloride 96 mmol/L (98-107); Estimated Glomerular Filt Rate > 60; Glucose 101 mg/dL (65-110); Potassium 2.7 mmol/L (3.4-5.0); Sodium 135 mmol/L (137-145)
[2022-05-04 15:41] LABS: Erythrocyte Sedimentation Rate 16 mm/hr (0-20)
[2022-05-07 04:33] LABS: Lupus dRVVT Screen 41 sec (<=45); PTT-LA Screen 31 sec (<=40)
[2022-05-10 23:33] LABS: Anti Cardio Antibody IgM <2.0 MPL-U/mL (<20.0); Anti Cardiolipin Antibody IgA <2.0 APL-U/mL (<20.0); Anti Cardiolipin Antibody IgG <2.0 GPL-U/mL (<20.0)
== END 2022-05-04 10:44 | disposition home or self-care (01) ==
PROVIDERS: Visit Provider Internal Medicine
DX: R76.8 Other specified abnormal immunological findings in serum (principal); M35.00 Sjogren syndrome, unspecified; R05.3 Chronic cough; U09.9 Post COVID-19 condition, unspecified; Z71.89 Other specified counseling; Z79.899 Other long term (current) drug therapy; M19.90 Unspecified osteoarthritis, unspecified site; M79.5 Residual foreign body in soft tissue
CPT/HCPCS: 36415; 71046; 72110; 73130; 73562; 73620; 80053; 85027; 85613; 85652; 85730; 86140; 86146; 86147; 86160

== ENCOUNTER 2023-02-02 11:57 | Outpatient (CLI) | payer OTHER, SELFPAY ==
[2023-02-02 12:36] LABS: Hematocrit 41.6 % (37.0-47.0); Hemoglobin 12.7 g/dL (12.0-15.0); Mean Corpuscular HGB Conc 30.5 g/dl (32-36); Mean Corpuscular Volume 88.3 fl (80-100); Mean Platelet Volume 9.6 fl (7.4-10.4); Platelet Count Result 362 k/mm3 (150-375); Red Blood Count 4.71 M/mm3 (4.2-5.4); Red Cell Distribution Width 14.1 % (11.5-14.5); White Blood Count 6.1 K/mm3 (4.5-10.0)
[2023-02-02 12:46] LABS: Alanine Aminotransferase 31 U/L (6-35); Albumin Level 4.5 g/dL (3.5-5.1); Alkaline Phosphatase 112 U/L (38-126); Anion Gap 14 mmol/L (8-16); Aspartate Amino Transferase 40 U/L (14-36); Bilirubin,Total 0.6 mg/dL (0.2-1.3); Blood Urea Nitrogen 10 mg/dL (7-17); Calcium 9.8 mg/dL (8.4-10.2); Carbon Dioxide 23 mmol/L (22-30); Chloride 105 mmol/L (98-107); Estimated Glomerular Filt Rate > 60; Glucose 84 mg/dL (65-110); Potassium 3.9 mmol/L (3.4-5.0); Sodium 142 mmol/L (137-145)
[2023-02-02 13:20] LABS: Erythrocyte Sedimentation Rate 20 mm/hr (0-20)
[2023-02-06 18:54] LABS: SM Antibody <1.0; SM/RNP Antibody <1.0; SS-A >8.0; SS-B <1.0
[2023-02-07 00:09] LABS: Angiotensin Converting Enzyme 29 U/L (9-67)
[2023-02-08 10:59] LABS: Anti Cyclic Citrullinated Pept <16 Units (<20)
== END 2023-02-02 11:58 | disposition home or self-care (01) ==
PROVIDERS: PCP Internal Medicine; Visit Provider Internal Medicine
DX: M35.00 Sjogren syndrome, unspecified (principal); M19.90 Unspecified osteoarthritis, unspecified site
CPT/HCPCS: 36415; 80053; 82164; 85027; 85652; 86200; 86235